=== PATIENT | female | born 1985 | race Caucasian/White ===

== ENCOUNTER 2024-12-19 19:17 | Emergency (ER) | payer OTHER, SELFPAY ==
[2024-12-19 19:31] VITALS: BP 134/60; PULSE 95; RESP 17; TEMP 36.4; O2SAT 98; BMI 34.3
[2024-12-19 19:52] LABS: Add Manual Diff / Slide Review NO; Basophils Absolute Auto 0 /uL (0-100); Basophils Percent Auto 0.1 % (0-2); Eosinophils Absolute Auto 0 /uL (0-450); Eosinophils Percent Auto 0.4 % (2-4); Hematocrit 41.8 % (36-46); Hemoglobin 13.8 g/dL (12.0-16.0); Lymphocytes Absolute Auto 200 /uL (1100-4500); Lymphocytes Percent Auto 1.9 % (25-40); Mean Corpuscular Hemoglobin 28.4 PG (26-34); Mean Corpuscular Volume 86.1 fL (80-100); Monocytes Absolute Auto 300 /uL (0-900); Monocytes Percent Auto 2.6 % (3-14); Neutrophils Absolute Auto 9700 /uL (1500-7000); Platelet Count 253 X10^3/uL (150-400); Red Blood Cell Count 4.85 X10^6/uL (4.0-5.2); Red Cell Distribution Width 14.1 % (11.6-14.8); White Blood Cell Count 10.2 X10^3/uL (4.5-11.0)
[2024-12-19] MEDS: ONDANSETRON 4 MG/2 ML INJ IV (19:56)
[2024-12-19 20:02] LABS: Alanine Aminotransferase 38 IU/L (<35); Albumin 4.6 g/dL (3.5-5.0); Albumin Globulin Ratio 1.4 (1.0-2.8); Alkaline Phosphatase 63 U/L (38-126); Aspartate Aminotransferase 38 IU/L (14-36); BUN Creatinine Ratio 21.3 (6-22); Bilirubin Total 1.2 mg/dL (0.2-1.3); Blood Urea Nitrogen 20 mg/dL (7-17); Calcium 9.1 mg/dL (8.4-10.2); Carbon Dioxide 26 mmol/L (22-32); Chloride 103 mmol/L (98-107); Estimated Glomerular Filt Rate > 60 mL/min (>60); Globulin 3.3 g/dL (1.7-4.1); Glucose 124 mg/dL (70-100); HEMOLYSIS < 15 (0-50); Lipase 71 U/L (23-300); Potassium 4.3 mmol/L (3.4-5.1); Sodium 139 mmol/L (137-145); Total Protein 7.9 g/dL (6.3-8.2)
[2024-12-19 23:38] VITALS: BP 122/66; PULSE 116; RESP 20; O2SAT 96
[2024-12-19 23:47] VITALS: BP 120/63; PULSE 113; RESP 18; O2SAT 96
[2024-12-19 23:53] LABS: Pregnancy Test Urine Negative (Negative)
[2024-12-19 23:56] LABS: Appearance Urine UA SL CLOUDY; Bilirubin Urine UA NEGATIVE (NEGATIVE); Color Urine UA YELLOW; Glucose Urine UA NEGATIVE (Negative); Ketones Urine UA TRACE (NEGATIVE); Leukocyte Esterase Urine UA 1+ (NEGATIVE); Nitrite Urine UA NEGATIVE (Negative); Occult Blood Urine UA NEGATIVE (Negative); Protein Urine UA TRACE (Negative); Specific Gravity Urine UA 1.025 (1.000-1.035); Urobilinogen Urine UA 0.2 E.U./dL (0.2)
[2024-12-19 23:57] LABS: pH Urine UA 5.5 (4.5-8.0)
[2024-12-20] VITALS: BP 123/65; PULSE 101; RESP 16; O2SAT 94
[2024-12-20 00:01] LABS: Amorphous Sediment Urine 2+; Bacteria Urine Moderate (10-30); Mucus Urine 1+ (Negative); RBC Urine 0-1/HPF (0-5/HPF); Squamous Epithelial Cell Urine 10-30 /HPF (0-5/HPF); Urine Volume 10mL (spun); WBC Urine 0-1/HPF (0-5/HPF)
[2024-12-20 00:02] LABS: Culture Indicated Urine Cult Not Indicated
[2024-12-20] MEDS: ACETAMINOPHEN 325 MG TABLET 975 MG PO (00:07)
--- NOTE | 2024-12-20 00:16 | ED_ITS ---
HPI - General Adult General Chief complaint: Abdominal Pain Stated complaint: Poss Toxic shock syndrome Time Seen by Provider: 12/20/24 00:15 Source: patient Mode of arrival: Ambulatory History of Present Illness HPI narrative: Patient is a 39-year-old female without any significant past medical history presents from home for evaluation of feeling ?off as well as nausea and dyspnea, she states that she is concerned she might have toxic shock syndrome because she left a tampon in yesterday for approximately 13 hours, she states that she did take this out, patient denies any headache visual disturbances fever chills or any other GI/ symptoms at this time. Related Data Home Medications Medication Instructions Recorded Confirmed hydrocodone 5 mg-acetaminophen 300 ##0 08/26/16 mg tablet (Vicodin) metoclopramide HCl 10 mg tablet ##0 08/26/16 ondansetron 8 mg disintegrating 8 mg PO TID ##0 08/26/16 tablet (Zofran ODT) ranitidine HCl 75 mg tablet ##0 08/26/16 Previous Rx's Medication Instructions Recorded ondansetron 4 mg disintegrating 4 mg PO Q8H PRN nausea and 12/20/24 tablet vomiting 5 days #15 tabs Allergies Allergy/AdvReac Type Severity Reaction Status Date / Time No Known Drug Allergies Allergy Verified 12/19/24 19:31 Review of Systems Review of Systems Narrative: General: Denies fever, chills, weight loss HEENT: Denies headache, eye drainage, eye irritation, head trauma, sore throat, voice change Cardiovascular: Denies any chest pain, palpitations, shortness of breath, tachycardia Respiratory: Positive shortness of breath, denies cough, wheeze, stridor GI/: Denies any abdominal pain, nausea, vomiting, diarrhea, bright red blood per rectum, melanotic stools, urinary frequency, urinary retention, dysuria, hematuria MSK: Denies any joint pain, muscle pains, swelling Skin: Denies any rashes, lesions, discoloration Neuro: Denies any headache, lightheadedness, dizziness, fainting, weakness Psych: Denies SI/HI Patient History Social History Smoking Status: Never smoker Smoking Status: Never smoker Exam Narrative Exam Narrative: General: Cooperative, comfortable, well-developed, not in acute distress HEENT: Normocephalic, atraumatic, PERRLA, normal sclera, eyelids normal, Neck: Active full range of motion, atraumatic Chest: Normal to inspection, negative crepitus, no overlying erythema ecchymosis Respiratory: Normal respiratory effort, not in acute respiratory distress, clear to auscultation bilaterally negative cough, wheeze, tachypnea, rhonchi, rales Cardiology: Regular rate rhythm negative gallop, murmur, rubs GI/: Normal to inspection, soft, nonrigid, no tenderness to palpation, exam deferred MSK: Full range of active range of motion of all 4 extremities, atraumatic Skin: No rashes lesions noted Neuro: Alert awake oriented x3, moves all 4 extremities spontaneously, cranial nerves intact, able to answer all questions appropriately follows commands appropriately Psych: Cooperative, negative suicidal or homicidal ideations Initial Vital Signs Initial Vital Signs: Vital Signs Temperature 97.6 F 12/19/24 19:31 Pulse Rate 95 H 12/19/24 19:31 Respiratory Rate 17 12/19/24 19:31 Blood Pressure 134/60 12/19/24 19:31 Pulse Oximetry 98 12/19/24 19:31 Oxygen Delivery Method Room Air 12/19/24 19:31 Course Orders Ordered: ED Orders 12/19/24 19:44 Complete Blood Count AUTO DIFF Stat Comprehensive Metabolic Panel Stat Lipase Stat 12/19/24 23:44 Test Urine Stat UA Complete [Urinalysis and Microscopic] Stat 12/20/24 00:24 CT abdomen pelvis w con Stat CXR [XR chest 1V] Stat MAG [Magnesium] Stat Troponin & CK Cardiac Panel Stat 12/20/24 00:55 Covid-19 + FLU A/B + RSV - PCR Stat Ondansetron HCl (Ondansetron 4 Mg/2 Ml Inj) 4 mg IV NOW PRN PRN Reason: Nausea And Vomiting Last Admin: 12/19/24 19:56 Dose: 4 mg Documented By: JENN Ondansetron HCl (Ondansetron 4 Mg Odt) 4 mg PO NOW PRN PRN Reason: Nausea And Vomiting Discontinued Medications Acetaminophen (Acetaminophen 325 Mg Tablet) 975 mg PO NOW ONE Stop: 12/19/24 23:52 Last Admin: 12/20/24 00:07 Dose: 975 mg Documented By: JOSÉ LUIS Famotidine (Famotidine 20 Mg/2 Ml Vial) 20 mg IV NOW ONE Stop: 12/20/24 00:25 Last Admin: 12/20/24 00:33 Dose: 20 mg Documented By: JOSÉ LUIS Sodium Chloride (Normal Saline 0.9%) 1,000 mls @ 1,000 mls/hr IV BOLUS ONE Stop: 12/20/24 01:23 Last Infusion: 12/20/24 01:40 Dose: Infused Documented By: JOSÉ LUIS Admin: 12/20/24 00:33 Dose: 1,000 mls/hr Documented By: JOSÉ LUIS Ondansetron HCl (Ondansetron 4 Mg/2 Ml Inj) 4 mg IV NOW ONE Stop: 12/20/24 00:25 Last Admin: 12/20/24 00:33 Dose: 4 mg Documented By: JOSÉ LUIS Vital Signs Vital signs: Vital Signs - 8 hr 12/19/24 19:31 12/19/24 23:38 12/19/24 23:38 Temperature 97.6 F Pulse Rate 95 H 116 H Respiratory Rate 17 20 Blood Pressure 134/60 122/66 Pulse Oximetry 98 96 Oxygen Delivery Method Room Air Room Air 12/19/24 23:47 12/19/24 23:47 12/20/24 00:00 Temperature Pulse Rate 113 H 101 H Respiratory Rate 18 16 Blood Pressure 120/63 Pulse Oximetry 96 94 Oxygen Delivery Method Room Air Room Air 12/20/24 00:00 12/20/24 00:30 12/20/24 00:30 Temperature Pulse Rate 102 H Respiratory Rate 18 Blood Pressure 123/65 125/58 L Pulse Oximetry 93 Oxygen Delivery Method Room Air 12/20/24 00:52 12/20/24 00:52 Temperature Pulse Rate 99 H Respiratory Rate 18 Blood Pressure 125/59 L Pulse Oximetry 96 Oxygen Delivery Method Room Air Medical Decision Making Differential Diagnosis Differential Diagnosis: Electrolyte abnormality, urinary tract infection, COVID, flu, ACS, pneumoni Lab Data 12/19/24 19:44 12/19/24 19:44 Labs: Lab Results 12/19/24 12/19/24 12/20/24 Range/Units 19:44 23:44 00:55 WBC 10.2 (4.5-11.0) X10^3/uL RBC 4.85 (4.0-5.2) X10^6/uL Hgb 13.8 (12.0-16.0) g/dL Hct 41.8 (36-46) % MCV 86.1 (80-100) fL MCH 28.4 (26-34) PG MCHC 33.0 (30-36) % RDW 14.1 (11.6-14.8) % Plt Count 253 (150-400) X10^3/uL Neut % (Auto) 95.0 H (50-75) % Lymph % (Auto) 1.9 L (25-40) % [place] % (Auto) 2.6 L (3-14) % Eos % (Auto) 0.4 L (2-4) % Baso % (Auto) 0.1 (0-2) % Neut # (Auto) 9700 H (1224-6642) /uL Lymph # (Auto) 200 L (2723-5314) /uL [place] # (Auto) 300 (0-900) /uL Eos # (Auto) 0 (0-450) /uL Baso # (Auto) 0 (0-100) /uL Sodium 139 (137-145) mmol/L Potassium 4.3 (3.4-5.1) mmol/L Chloride 103 (98-107) mmol/L Carbon Dioxide 26 (22-32) mmol/L BUN 20 H (7-17) mg/dL Creatinine 0.94 (0.52-1.04) mg/dL Estimated GFR > 60 (>60) mL/min BUN/Creatinine Ratio 21.3 (6-22) Glucose 124 H (70-100) mg/dL Calcium 9.1 (8.4-10.2) mg/dL Magnesium 1.5 L (1.6-2.3) mg/dL Total Bilirubin 1.2 (0.2-1.3) mg/dL AST 38 H (14-36) IU/L ALT 38 H (<35) IU/L Alkaline Phosphatase 63 (38-126) U/L Total Creatine Kinase 92 (30-135) U/L Troponin I < 0.012 (0.01-0.034) ng/mL Total Protein 7.9 (6.3-8.2) g/dL Albumin 4.6 (3.5-5.0) g/dL Globulin 3.3 (1.7-4.1) g/dL Albumin/Globulin Ratio 1.4 (1.0-2.8) Lipase 71 (23-300) U/L Urine Color Yellow Urine Appearance Sl cloudy Urine pH 5.5 (4.5-8.0) Ur Specific [place] 1.025 (1.000-1.035) Urine Protein Trace H (Negative) Urine Glucose (UA) Negative (Negative) g/dL Urine Ketones Trace H (NEGATIVE) Urine Occult Blood Negative (Negative) Urine Nitrate Negative (Negative) Urine Bilirubin Negative (NEGATIVE) Urine Urobilinogen 0.2 (0.2) E.U./dL Ur Leukocyte Esterase 1+ H (NEGATIVE) Urine RBC 0-1/hpf (0-5/HPF) Urine WBC 0-1/hpf (0-5/HPF) Ur Squamous Epith Cells 10-30 /hpf H (0-5/HPF) Amorphous Sediment 2+ Urine Bacteria Moderate (10-30) H (None) Urine Mucus 1+ H (Negative) Ur Culture Indicated? Cult not indicated Vol Urine Centrifuged 10ml (spun) Urine Test Negative (Negative) SARS-CoV-2 (PCR) Negative (Negative) Influenza A (RT-PCR) Flu a negative (NEGATIVE) Influenza B (RT-PCR) Flu b negative (NEGATIVE) RSV (PCR) Negative (Negative) Imaging Data Chest x-ray: Radiologist's Impression: [address] [address] XRay Report Signed Patient: Sandra Palma MR#: [id number] : 1985 Acct:[id number] Age/Sex: 39 / F Date of Service: 12/20/24 Loc: ED Accession Number: [id number] Procedure: XR chest 1V Ordering Provider: Sesar Murray D.O. PROCEDURE: XR CHEST 1V INDICATIONS: sob TECHNIQUE: One view of the chest was acquired. COMPARISON: None. FINDINGS: Surgical changes and devices: None. Lungs and pleura: Lungs are clear. No pleural effusions or pneumothorax. Mediastinum: Mediastinal contours appear normal. Heart size is normal. Bones and chest wall: No suspicious bony lesions. Overlying soft tissues appear unremarkable. IMPRESSION: No acute cardiopulmonary abnormality is seen. CT scan - abdomen/pelvis: Radiologist's Impression: [address] [address] [address] Scan Report Signed Patient: Sandra Palma MR#: [id number] : 1985 Acct:[id number] Age/Sex: 39 / F Date of Service: 12/20/24 Loc: ED Accession Number: [id number] Procedure: CT abdomen pelvis w con Ordering Provider: Sesar Murray D.O. PROCEDURE: CT ABDOMEN PELVIS W CON INDICATIONS: diffuse abd pain TECHNIQUE: After the administration of intravenous contrast, axial sections acquired from the lung bases to the pubic symphysis. Coronal and sagittal reformats were performed. For radiation dose reduction, the following was used: automated exposure control, adjustment of mA and/or kV according to patient size. COMPARISON: None. FINDINGS: Image quality: Diagnostic. Lower Chest: Lung bases are clear. Small hiatal hernia. ABDOMEN: Liver: No solid mass. Gallbladder: No radiopaque gallstones or wall thickening. Biliary ducts: No biliary dilation. Pancreas: No ductal dilation. Spleen: Size is within normal limits. Adrenal Glands: No adrenal nodules. Kidneys and Ureters: No hydronephrosis. No solid mass. No complex renal cystic lesion which requires follow up. Stomach and Bowel: Normal colonic caliber, without significant wall thickening. Several fluid-filled loops of small bowel which are not dilated. Normal appendix. Peritoneum: No abnormal intraperitoneal fluid. No free air. Ventral Wall: No significant ventral hernia. Abdominal Nodes: No retroperitoneal or mesenteric adenopathy by size criteria. Vessels: Aorta and inferior vena cava are normal in size. PELVIS: Pelvic Organs: Unremarkable. Bladder: No bladder wall thickening, accounting for underdistention. Pelvic Nodes: No enlarged lymph nodes. Miscellaneous: No inguinal hernias are seen. Bones: No aggressive osseous abnormality. IMPRESSION: 1. Several nondilated fluid-filled loops of small bowel are noted, nonspecific and may represent enteritis. Recommend clinical correlation. 2. Otherwise, no acute findings within the abdomen or pelvis. MDM Narrative Medical decision making narrative: 39-year-old female without any significant past medical history comes into the ED for flu-like symptoms which she describes as nausea lightheadedness hot flashes states that she is concerned she is undergoing toxic shock syndrome because she left her tampon in for approximately 13 hours yesterday however she states that she did take this out today. Patient with lab work without leukocytosis patient afebrile, there are no rashes or lesions consistent with toxic shock syndrome Chem panel unremarkable. Troponin negative, CT scan showing nonspecific enteritis, chest x-ray without any acute cardiopulmonary abnormalities. Symptoms more likely viral in nature, patient had resolution of symptoms after medication and fluids here in the emergency department, she was given strict return precautions will be discharged home with symptomatic relief she verbalized understanding of this and agrees to being discharged home without patient follow up Discharge Plan Departure Patient Disposition: Home Clinical Impression: Gastroenteritis Instructions: DI for Viral Gastroenteritis -- Adult Activity Restrictions/Additional Instructions: Please follow up with your primary care physician Please read the discharge instructions sheet carefully and bring all papers to all doctor follow-up visits, as it may contain information that your doctor may want to see. Disease processes change and evolve, if your symptoms worsen or if you develop any new symptoms that are concerning to you please return for evaluation. Your evaluation today does not show any evidence of any life- threatening/serious illnesses requiring admission to the hospital or surgery. Please follow-up with your doctor for re-evaluation in approximately 1 day. Seek immediate medical attention for any worrisome symptoms. *If you do not have a primary care provider please contact the [facility] Resource line at [phone]. They will ask some questions about your medical history and help get you set up with a doctor in the community. Prescriptions: New ondansetron 4 mg tablet,disintegrating 4 mg PO Q8H PRN (Reason: nausea and vomiting) 5 Days Qty: 15 0RF No Action ondansetron [Zofran ODT] 8 MG tablet,disintegrating 8 mg PO TID Qty: 0 hydrocodone-acetaminophen [Vicodin] 5 MG/300 MG tablet Qty: 0 ranitidine HCl 75 MG tablet Qty: 0 metoclopramide HCl 10 MG tablet Qty: 0 Stand Alone Forms: Patient Portal/API/Survey
--- NOTE | 2024-12-20 00:24 | DI.RAD.S_ITS ---
PROCEDURE: XR CHEST 1V INDICATIONS: sob TECHNIQUE: One view of the chest was acquired. COMPARISON: None. FINDINGS: Surgical changes and devices: None. Lungs and pleura: Lungs are clear. No pleural effusions or pneumothorax. Mediastinum: Mediastinal contours appear normal. Heart size is normal. Bones and chest wall: No suspicious bony lesions. Overlying soft tissues appear unremarkable. IMPRESSION: No acute cardiopulmonary abnormality is seen. Dictated by: Charles Gray M.D. on 12/20/2024 at 0:55 Approved by: Charles Gray M.D. on 12/20/2024 at 0:57
--- NOTE | 2024-12-20 00:24 | DI.CT.S_ITS ---
PROCEDURE: CT ABDOMEN PELVIS W CON INDICATIONS: diffuse abd pain TECHNIQUE: After the administration of intravenous contrast, axial sections acquired from the lung bases to the pubic symphysis. Coronal and sagittal reformats were performed. For radiation dose reduction, the following was used: automated exposure control, adjustment of mA and/or kV according to patient size. COMPARISON: None. FINDINGS: Image quality: Diagnostic. Lower Chest: Lung bases are clear. Small hiatal hernia. ABDOMEN: Liver: No solid mass. Gallbladder: No radiopaque gallstones or wall thickening. Biliary ducts: No biliary dilation. Pancreas: No ductal dilation. Spleen: Size is within normal limits. Adrenal Glands: No adrenal nodules. Kidneys and Ureters: No hydronephrosis. No solid mass. No complex renal cystic lesion which requires follow up. Stomach and Bowel: Normal colonic caliber, without significant wall thickening. Several fluid-filled loops of small bowel which are not dilated. Normal appendix. Peritoneum: No abnormal intraperitoneal fluid. No free air. Ventral Wall: No significant ventral hernia. Abdominal Nodes: No retroperitoneal or mesenteric adenopathy by size criteria. Vessels: Aorta and inferior vena cava are normal in size. PELVIS: Pelvic Organs: Unremarkable. Bladder: No bladder wall thickening, accounting for underdistention. Pelvic Nodes: No enlarged lymph nodes. Miscellaneous: No inguinal hernias are seen. Bones: No aggressive osseous abnormality. IMPRESSION: 1. Several nondilated fluid-filled loops of small bowel are noted, nonspecific and may represent enteritis. Recommend clinical correlation. 2. Otherwise, no acute findings within the abdomen or pelvis. Dictated by: Charles Gray M.D. on 12/20/2024 at 0:57 Approved by: Charles Gray M.D. on 12/20/2024 at 1:01
[2024-12-20 00:30] VITALS: BP 125/58; PULSE 102; RESP 18; O2SAT 93
[2024-12-20] MEDS: ONDANSETRON 4 MG/2 ML INJ IV (00:33)
[2024-12-20] MEDS: FAMOTIDINE 20 MG/2 ML VIAL IV (00:33)
[2024-12-20] MEDS: SODIUM CHLORIDE 0.9% 1,000 ML 1000 ML IV (00:33)
--- NOTE | 2024-12-20 00:35 | PC.NURSE ---
Pt taken to imaging via wheel chair with zoology technical officer
[2024-12-20 00:44] LABS: Creatine Kinase 92 U/L (30-135); Magnesium 1.5 mg/dL (1.6-2.3)
[2024-12-20 00:52] VITALS: BP 125/59; PULSE 99; RESP 18; O2SAT 96
[2024-12-20 00:57] LABS: Troponin I < 0.012 ng/mL (0.01-0.034)
[2024-12-20 01:00] VITALS: BP 113/55; PULSE 96; O2SAT 93
[2024-12-20 01:30] VITALS: BP 118/70; PULSE 87; O2SAT 97
[2024-12-20 01:38] LABS: Influenza A - CEPHEID Flu A NEGATIVE (NEGATIVE); Influenza B - CEPHEID Flu B NEGATIVE (NEGATIVE); Respiratory Syncytial Virus Negative (Negative)
[2024-12-20 02:00] VITALS: BP 121/63; PULSE 89; RESP 14; O2SAT 95
[2024-12-20 02:02] LABS: COVID-19 CEPHEID 4-PLEX PCR Negative (Negative)
== END 2024-12-20 02:30 | disposition home or self-care (01) ==
PROVIDERS: Emergency Provider Student in an Organized Health Care Education/Training Program
DX: K52.9 Noninfective gastroenteritis and colitis, unspecified (principal); R11.0 Nausea; R06.02 Shortness of breath
CPT/HCPCS: 0241U; 36415; 71045; 74177; 80053; 81001; 81025; 82550; 83690; 83735; 84484; 85025; 96361; 96374; 96375; 96376; 99284; J2405; Q9967